=== PATIENT | female | born 1955 ===

== ENCOUNTER 2017-05-09 01:32 | Observation (INO) | payer MEDICAID ==
[2017-05-09] MEDS ORDERED: Iohexol 240 (50 ml) PO STA (02:17)
[2017-05-09] MEDS ORDERED: Iohexol 240 (50 ml) ONE (02:24)
--- NOTE | 2017-05-09 02:30 | C.PDOC ---
History Of Present Illness 62 year old female presents to the ED for evaluation of epigastric abdominal pain which has been intermittent since 1700 yesterday. She reports having a normal bowel movement yesterday at noon. She reports vomiting and denies fever, chills, chest pain, and shortness of breath. Patient reports she has had multiple abdominal surgeries as well as abdominal masses, and goes for colonoscopies every 3 months. Time Seen by Provider: 05/09/17 02:03 Chief Complaint (Nursing): Abdominal Pain History Per: Patient History/Exam Limitations: no limitations Onset/Duration Of Symptoms: Hrs, Intermittent Episodes Current Symptoms Are (Timing): Still Present Location Of Pain/Discomfort: Epigastric Radiation Of Pain To:: None Quality Of Discomfort: "Pain" Associated Symptoms: Vomiting (one time). denies: Fever, Chills, Diarrhea, Constipation Last Bowel Movement: Yesterday Recent travel outside of the [place]: No Additional History Per: Patient Abnormal Vaginal Bleeding: No Past Medical History Reviewed: Historical Data, Nursing Documentation, Vital Signs Vital Signs: Last Vital Signs Temp 98.5 F 05/09/17 03:48 Pulse 60 05/09/17 06:00 Resp 18 05/09/17 06:00 BP 102/64 05/09/17 06:00 Pulse Ox 100 05/09/17 06:18 - Medical History PMH: No Chronic Diseases Surgical History: Endoscopy Other Surgeries: abdominal surgeries, colon resection Family History: States: Unknown Family Hx - Social History Hx Alcohol Use: No Hx Substance Use: No - Immunization History Hx Tetanus Toxoid Vaccination: No Hx Influenza Vaccination: No Hx Pneumococcal Vaccination: No Review Of Systems Constitutional: Negative for: Fever, Chills Cardiovascular: Negative for: Chest Pain Respiratory: Negative for: Shortness of Breath Gastrointestinal: Positive for: Vomiting, Abdominal Pain. Negative for: Diarrhea, Constipation Physical Exam - Physical Exam Appears: Non-toxic, No Acute Distress Skin: Normal Color, Warm, Dry, Other (well-healed, vertical scar on abdomein ) Head: Atraumatic, Normacephalic Eye(s): bilateral: Normal Inspection Oral Mucosa: Moist Throat: No Erythema, No Exudate Neck: Normal ROM, Supple Chest: Symmetrical, No Deformity, No Tenderness Cardiovascular: Rhythm Regular, No Murmur Respiratory: Normal Breath Sounds, No Rales, No Rhonchi, No Wheezing Gastrointestinal/Abdominal: Soft, Tenderness (epigastric ), No Distention, No Guarding, No Rebound Rectal: Deferred Back: CVA Tenderness Extremity: Normal ROM, No Pedal Edema, No Calf Tenderness, Capillary Refill ( less than 2 seconds ) Pulses: Left Radial: Normal, Right Radial: Normal Neurological/Psych: Oriented x3, Normal Speech, Normal Cognition Gait: Steady ED Course And Treatment - Laboratory Results Result Diagrams: 05/09/17 02:33 05/09/17 02:33 ECG: Interpreted By Me, Viewed By Me ECG Rhythm: Sinus Rhythm Interpretation Of ECG: Normal Sinus Rhythm at rate 69bpm. Right bundle branch block. Left anterior fascicular block. Bifascicular block. Rate From EC O2 Sat by Pulse Oximetry: 100 (on RA) Pulse Ox Interpretation: Normal - CT Scan/US CT A/P Other Rad Studies (CT/US): Interpreted By Me, Read By Radiologist, Radiology Report Reviewed CT/US Interpretation: EXAM: CT Abdomen and Pelvis With Intravenous Contrast. EXAM DATE/TIME: 05/09/2017 2:18 AM. CLINICAL HISTORY: 62 years old, female; Pain; Abdominal pain; Prior surgery; Surgery type: Colon polyp removed;. Additional info: Abd pain. TECHNIQUE: Axial computed tomography images of the abdomen and pelvis with intravenous contrast. All CT. scans at this facility use one or more dose reduction techniques, viz.: automated exposure control;. ma/kV adjustment per patient size (including targeted exams where dose is matched to indication; i.e. head); or iterative reconstruction technique. Coronal and sagittal reformatted images were created and reviewed. CONTRAST: 100 mL of [id number] administered intravenously. COMPARISON: No relevant prior studies available. FINDINGS: LIMITATIONS: Mild streak/motion artifact. LOWER THORAX: No infiltrate seen in the lung bases. ABDOMEN: LIVER: Fatty infiltration of the liver. GALLBLADDER AND BILE DUCTS: See below. Gallbladder does not appear significantly dilated. No radioopaque gallstones are seen. PANCREAS: No CT evidence of acute pancreatitis. SPLEEN: No acute abnormality of the spleen identified. ADRENALS: No acute abnormality of the adrenal glands identified. KIDNEYS AND URETERS: No acute abnormality of the kidneys identified. No evidence of. significant hydrouereteronephrosis. STOMACH AND BOWEL: Evidence of prior subtotal colectomy. The rectum remains in situ, and. there is an enterocolic anastomosis in the pelvis. A few mildly dilated small bowel loops are seen in. the right abdomen. There is no transition point seen in the small bowel. There is no evidence of. diffuse small bowel dilatation. No decompressed small bowel loops are seen. There is normal. passage of enteric contrast through the entire small bowel, into the rectum. Findings are most likely. due to a mild ileus of the small bowel. No evidence of a high- grade small bowel obstruction or. significant small bowel wall thickening/ enteritis. Otherwise, no significant abnormality of the bowel is. identified. APPENDIX: Appendix has been surgically removed. PELVIS: BLADDER: No acute abnormality of the bladder identified. REPRODUCTIVE: Small, exophytic uterine fibroids are noted. At least 2 are seen. No evidence of. large adnexal masses. ABDOMEN and PELVIS: INTRAPERITONEAL SPACE: Moderate amount of free fluid in the abdomen. This abuts the liver,. gallbladder, and multiple right abdominal small bowel loops. Small amount of pelvic free fluid. No. evidence of free air. BONES/JOINTS: No acute fractures or other acute bony abnormality noted SOFT TISSUES: No acute abnormality of the visualized soft tissues is seen. VASCULATURE: No evidence of abdominal aortic aneurysm. No evidence of periaortic. hemorrhage. LYMPH NODES: No evidence of diffuse lymphadenopathy. IMPRESSION: - Moderate free fluid in the right abdomen, of uncertain etiology. - Dilatation of multiple small bowel loops in the right abdomen, most likely representing a mild. ileus. No evidence of a high grade small bowel obstruction or significant enteritis. - See above for remaining findings. Medical Decision Making Medical Decision Making: Progress: Bloodwork, urinalysis, CT A/P, and EKG ordered and reviewed. 535 am pt with moderate free fluid in abdomen, wioth ileus. also abnomral ekg. will admit to Dr Tejinder Fabian ekg with bifasicular blick- no old ekg to compre to. Disposition Discussed With : Marlen Fabian - Disposition Disposition Time: 05:54 Condition: STABLE - Clinical Impression Clinical Impression: Ileus, unspecified, Abdominal fluid collection, Bifascicular block - PA / TEMPLATE FITTER / Resident Statement MD/DO has reviewed & agrees with the documentation as recorded. - Scribe Statement The provider has reviewed the documentation as recorded by the Scribe (Jing Fabian) All medical record entries made by the Scribe were at my direction and personally dictated by me. I have reviewed the chart and agree that the record accurately reflects my personal performance of the history, physical exam, medical decision making, and the department course for this patient. I have also personally directed, reviewed, and agree with the discharge instructions and disposition.
[2017-05-09 02:39] LABS: BASO % 0.4 % (0.0-2.0); EOS % 0.2 % (0.0-4.0); LYMPH # 0.7 K/uL (1.0-4.3); LYMPH % 11.3 % (20.0-40.0); MEAN CELL VOLUME 81.7 fL (81.0-99.0); MEAN CORPUSCULAR HEMOGLOBIN 28.4 pg (27.0-31.0); MEAN CORPUSCULAR HGB CONC 34.8 g/dL (33.0-37.0); MEAN PLATELET VOLUME 8.9 fL (7.2-11.7); MONO # 0.2 K/uL (0.0-0.8); MONO % 2.7 % (0.0-10.0); NEUT # 5.6 K/uL (1.8-7.0); NEUT % 85.4 % (50.0-75.0); NRBC % 0.1 % (0.0-2.0); RBC 5.3 Mil/uL (3.80-5.20); RED CELL DISTRIBUTION WIDTH 12.8 % (11.5-14.5); WHITE BLOOD COUNT 6.6 K/uL (4.8-10.8)
[2017-05-09 02:46] LABS: SQUAMOUS EPITHIAL 2 /hpf (0-5); URINE BILIRUBIN NEGATIVE (NEGATIVE); URINE BLOOD 1+ (NEGATIVE); URINE CLARITY Clear (Clear); URINE COLOR Yellow (YELLOW); URINE GLUCOSE (UA) NORMAL (Normal); URINE LEUKOCYTE ESTERASE TRACE Leu/uL (Negative); URINE NITRATE NEGATIVE (NEGATIVE); URINE PROTEIN 1+ mg/dL (NEGATIVE); URINE UROBILINOGEN NORMAL mg/dL (0.2-1.0)
[2017-05-09 02:54] LABS: ALB/GLOB RATIO 1.4 (1.0-2.1); ALBUMIN 4.3 g/dL (3.5-5.0); ALT/SGPT 30 U/L (9-52); AST/SGOT 30 U/L (14-36); BLOOD UREA NITROGEN 18 mg/dL (7-17); CALCIUM 10.2 mg/dl (8.6-10.4); GFR AFRICAN-AMERICAN > 60; GFR NON-AFRICAN AMERICAN > 60; LIPASE 128 U/L (23-300)
[2017-05-09] MEDS ORDERED: Iohexol 350mg/ml 100 ML ONE (03:16)
--- NOTE | 2017-05-09 04:25 | CT ---
EXAM: CT Abdomen and Pelvis With Intravenous Contrast EXAM DATE/TIME: 05/09/2017 2:18 AM CLINICAL HISTORY: 62 years old, female; Pain; Abdominal pain; Prior surgery; Surgery type: Colon polyp removed; Additional info: Abd pain TECHNIQUE: Axial computed tomography images of the abdomen and pelvis with intravenous contrast. All CT scans at this facility use one or more dose reduction techniques, viz.: automated exposure control; ma/kV adjustment per patient size (including targeted exams where dose is matched to indication; i.e. head); or iterative reconstruction technique. Coronal and sagittal reformatted images were created and reviewed. CONTRAST: 100 mL of [id number] administered intravenously. COMPARISON: No relevant prior studies available. FINDINGS: LIMITATIONS: Mild streak/motion artifact. LOWER THORAX: No infiltrate seen in the lung bases. ABDOMEN: LIVER: Fatty infiltration of the liver. GALLBLADDER AND BILE DUCTS: See below. Gallbladder does not appear significantly dilated. No radioopaque gallstones are seen. PANCREAS: No CT evidence of acute pancreatitis. SPLEEN: No acute abnormality of the spleen identified. ADRENALS: No acute abnormality of the adrenal glands identified. KIDNEYS AND URETERS: No acute abnormality of the kidneys identified. No evidence of significant hydrouereteronephrosis. STOMACH AND BOWEL: Evidence of prior subtotal colectomy. The rectum remains in situ, and there is an enterocolic anastomosis in the pelvis. A few mildly dilated small bowel loops are seen in the right abdomen. There is no transition point seen in the small bowel. There is no evidence of diffuse small bowel dilatation. No decompressed small bowel loops are seen. There is normal passage of enteric contrast through the entire small bowel, into the rectum. Findings are most likely due to a mild ileus of the small bowel. No evidence of a high-grade small bowel obstruction or significant small bowel wall thickening/enteritis. Otherwise, no significant abnormality of the bowel is identified. APPENDIX: Appendix has been surgically removed. PELVIS: BLADDER: No acute abnormality of the bladder identified. REPRODUCTIVE: Small, exophytic uterine fibroids are noted. At least 2 are seen. No evidence of large adnexal masses. ABDOMEN and PELVIS: INTRAPERITONEAL SPACE: Moderate amount of free fluid in the abdomen. This abuts the liver, gallbladder, and multiple right abdominal small bowel loops. Small amount of pelvic free fluid. No evidence of free air. BONES/JOINTS: No acute fractures or other acute bony abnormality noted. SOFT TISSUES: No acute abnormality of the visualized soft tissues is seen. VASCULATURE: No evidence of abdominal aortic aneurysm. No evidence of periaortic hemorrhage. LYMPH NODES: No evidence of diffuse lymphadenopathy. IMPRESSION: - Moderate free fluid in the right abdomen, of uncertain etiology. - Dilatation of multiple small bowel loops in the right abdomen, most likely representing a mild ileus. No evidence of a high grade small bowel obstruction or significant enteritis. - See above for remaining findings.
[2017-05-09] MEDS ORDERED: Morphine 4 MG/ML VIAL ONE (06:08)
[2017-05-09] MEDS ORDERED: Dextrose 5%/0.9% NS 1,000 ML IV ONE (09:05)
[2017-05-09] MEDS: Dextrose 5%/0.9% NS 1,000 ML IV SCH ×2 (09:09→17:11)
--- NOTE | 2017-05-09 13:54 | CP.PCM.CON ---
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 She was last seen at [facility] with Dr. Scanlon and was deemed disease-free with CT A/P IV contrast 02/16/17 showing normal pancreas, lover, biliary system, normal bowel loops, uterine fibroids. Patient describes mild epigastric pain without radiation to back for three days with associated constipation, pain scale 3/10. Associated four episodes of small clear vomitus around 7-8pm last night. Currently, abdominal pain and vomiting have resolved. Denies fever, chills, sweats, diarrhea, melena, hematochezia, unintentional weight loss, sick contacts , recent antibiotics, recent travel, or unusual foods. Prior EGD/colonoscopy 2016 endorsed to showed Gastritis and many polyps requiring 3 month interval colonoscopy planned for 06/2017. 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) with urethral resection and reconstruction Review of Systems - Review of Systems Review of Systems: 12-point review of systems negative except for as above Past Patient History - Infectious Disease Hx of Infectious Diseases: None - Past Medical History & Family History Past Medical History?: Yes - Past Social History Smoking Status: Never Smoked - CARDIAC Hx Cardiac Disorders: No - PULMONARY Hx Respiratory Disorders: No - NEUROLOGICAL Hx Neurological Disorder: No - HEENT Hx HEENT Problems: No - RENAL Hx Chronic Kidney Disease: No - ENDOCRINE/METABOLIC Hx Endocrine Disorders: No - HEMATOLOGICAL/ONCOLOGICAL Hx Blood Disorders: No - INTEGUMENTARY Hx Dermatological Problems: No - MUSCULOSKELETAL/RHEUMATOLOGICAL Hx Musculoskeletal Disorders: Yes Hx Arthritis: Yes Hx Falls: Yes - GASTROINTESTINAL Hx Gastrointestinal Disorders: Yes Other/Comment: colon removed - GENITOURINARY/GYNECOLOGICAL Hx Genitourinary Disorders: No - PSYCHIATRIC Hx Psychophysiologic Disorder: No Hx Substance Use: No - SURGICAL HISTORY Hx Surgeries: Yes Other/Comment: colon removal sx - ANESTHESIA Hx Anesthesia: Yes Hx Anesthesia Reactions: No Hx Malignant Hyperthermia: No Has any member of the family had a problem w/ anesthesia?: No Meds Allergies/Adverse Reactions: Allergies Allergy/AdvReac Type Severity Reaction Status Date / Time acetaminophen [From Tylenol] Allergy Verified 05/09/17 01:48 - Medications Medications: Current Medications Dextrose/Sodium Chloride (Dextrose 5%/0.9% Ns 1000 Ml) 1,000 mls @ 100 mls/hr IV .Q10H [facility] Last Admin: 05/09/17 09:09 Dose: 100 mls/hr Piperacillin Sod/Tazobactam Sod (Zosyn 3.375 Gm Iv Premix) 3.375 gm in 50 mls @ 100 mls/hr IVPB Q8 [facility] Metronidazole (Flagyl) 500 mg in 100 mls @ 100 mls/hr IVPB Q12H [facility] Pantoprazole Sodium (Protonix Inj) 40 mg IVP DAILY [facility] Pneumococcal Polyvalent Vaccine (Pneumovax 23 Vaccine) 0.5 ml IM .ONCE ONE Stop: 05/10/17 10:01 Physical Exam - Constitutional Appears: Non-toxic, No Acute Distress - Head Exam Head Exam: ATRAUMATIC, NORMOCEPHALIC - Eye Exam Eye Exam: EOMI, PERRL. absent: Scleral icterus Pupil Exam: PERRL. absent: Miosis, Mydriatic - ENT Exam ENT Exam: Mucous Membranes Moist, Normal Oropharynx - Neck Exam Neck exam: Positive for: Full Rom, Normal Inspection - Respiratory Exam Respiratory Exam: Clear to Auscultation Bilateral. absent: Rales, Rhonchi, Wheezes - Cardiovascular Exam Cardiovascular Exam: RRR, +S1, +S2. absent: Gallop, Rubs - GI/Abdominal Exam GI & Abdominal Exam: Normal Bowel Sounds, Soft. absent: Distended, Firm, Guarding, Organomegaly, Rebound, Rigid, Tenderness - Extremities Exam Extremities exam: Positive for: normal inspection. Negative for: pedal edema - Neurological Exam Neurological exam: Alert - Psychiatric Exam Psychiatric exam: Normal Affect, Normal Mood - Skin Skin Exam: Dry, Intact, Normal Color, Warm Results - Vital Signs Recent Vital Signs: Last Vital Signs Temp 98.6 F 05/09/17 09:31 Pulse 55 L 05/09/17 09:31 Resp 19 05/09/17 09:31 BP 98/60 L 05/09/17 09:31 Pulse Ox 100 05/09/17 09:31 - Labs Result Diagrams: 05/09/17 02:33 05/09/17 02:33 Labs: Laboratory Results - last 24 hr 05/09/17 05/09/17 05/09/17 02:33 02:33 02:33 WBC 6.6 RBC 5.30 H Hgb 15.0 Hct 43.3 MCV 81.7 MCH 28.4 MCHC 34.8 RDW 12.8 Plt Count 222 MPV 8.9 Neut % (Auto) 85.4 H Lymph % (Auto) 11.3 L [place] % (Auto) 2.7 Eos % (Auto) 0.2 Baso % (Auto) 0.4 Neut # (Auto) 5.6 Lymph # (Auto) 0.7 L [place] # (Auto) 0.2 Eos # (Auto) 0.0 Baso # (Auto) 0.0 Sodium 133 Potassium 3.7 Chloride 99 Carbon Dioxide 26 Anion Gap 12 BUN 18 H Creatinine 0.7 Est GFR ( Amer) > 60 Est GFR (Non-Af Amer) > 60 Random Glucose 136 H Calcium 10.2 Total Bilirubin 0.9 AST 30 ALT 30 Alkaline Phosphatase 67 Troponin I < 0.0120 Total Protein 7.5 Albumin 4.3 Globulin 3.2 Albumin/Globulin Ratio 1.4 Lipase 128 Urine Color Yellow Urine Clarity Clear Urine pH 7.0 Ur Specific [place] 1.025 Urine Protein 1+ H Urine Glucose (UA) Normal Urine Ketones 1+ H Urine Blood 1+ H Urine Nitrate Negative Urine Bilirubin Negative Urine Urobilinogen Normal Ur Leukocyte Esterase Trace Urine WBC (Auto) 4 Urine RBC (Auto) 13 H Ur Squamous Epith Cells 2 Assessment & Plan - Assessment and Plan (Free Text) Assessment: 62 year old female with history of Familial adenomatous polyposis s/p subtotal colectomy with ileorectal anastomosis at [facility] in the past and 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 Active treatment of mild ileus and constipation with small free fluid on CT A/P. Prior EGD/colonoscopy 03/2017 endorsed to showed Gastritis and many polyps requiring 3 month interval colonoscopy planned for 06/2017. Plan: >advance to full liquid diet >start Miralax daily >surgery managing- appreciate recommendations >normal [facility] at [facility] 02/2017 >follows at [facility] with Dr. Scanlon- surgical oncology >planned repeat colonoscopy 06/2017 with established sustainability communicator for history of FAP aand recommend follow up of ileus on discharge <Giles May - Last Filed: 05/09/17 20:44> Meds - Medications Medications: Current Medications Dextrose/Sodium Chloride (Dextrose 5%/0.9% Ns 1000 Ml) 1,000 mls @ 100 mls/hr IV .Q10H [facility] Last Admin: 05/09/17 17:11 Dose: Not Given Piperacillin Sod/Tazobactam Sod (Zosyn 3.375 Gm Iv Premix) 3.375 gm in 50 mls @ 100 mls/hr IVPB Q8 [facility] Last Admin: 05/09/17 14:13 Dose: 100 mls/hr Metronidazole (Flagyl) 500 mg in 100 mls @ 100 mls/hr IVPB Q12H [facility] Last Admin: 05/09/17 14:13 Dose: 100 mls/hr Pantoprazole Sodium (Protonix Inj) 40 mg IVP DAILY [facility] Last Admin: 05/09/17 14:06 Dose: 40 mg Pneumococcal Polyvalent Vaccine (Pneumovax 23 Vaccine) 0.5 ml IM .ONCE ONE Stop: 05/10/17 10:01 Polyethylene Glycol (Miralax) 17 gm PO DAILY [facility] Last Admin: 05/09/17 16:08 Dose: 17 gm Results - Vital Signs Recent Vital Signs: Last Vital Signs Temp 97.6 F 05/09/17 16:24 Pulse 56 L 05/09/17 16:24 Resp 20 05/09/17 16:24 BP 95/60 L 05/09/17 16:24 Pulse Ox 98 05/09/17 16:24 - Labs Result Diagrams: 05/09/17 02:33 05/09/17 02:33 Labs: Laboratory Results - last 24 hr 05/09/17 05/09/17 05/09/17 02:33 02:33 02:33 WBC 6.6 RBC 5.30 H Hgb 15.0 Hct 43.3 MCV 81.7 MCH 28.4 MCHC 34.8 RDW 12.8 Plt Count 222 MPV 8.9 Neut % (Auto) 85.4 H Lymph % (Auto) 11.3 L [place] % (Auto) 2.7 Eos % (Auto) 0.2 Baso % (Auto) 0.4 Neut # (Auto) 5.6 Lymph # (Auto) 0.7 L [place] # (Auto) 0.2 Eos # (Auto) 0.0 Baso # (Auto) 0.0 Sodium 133 Potassium 3.7 Chloride 99 Carbon Dioxide 26 Anion Gap 12 BUN 18 H Creatinine 0.7 Est GFR ( Amer) > 60 Est GFR (Non-Af Amer) > 60 Random Glucose 136 H Calcium 10.2 Total Bilirubin 0.9 AST 30 ALT 30 Alkaline Phosphatase 67 Troponin I < 0.0120 Total Protein 7.5 Albumin 4.3 Globulin 3.2 Albumin/Globulin Ratio 1.4 Lipase 128 Urine Color Yellow Urine Clarity Clear Urine pH 7.0 Ur Specific [place] 1.025 Urine Protein 1+ H Urine Glucose (UA) Normal Urine Ketones 1+ H Urine Blood 1+ H Urine Nitrate Negative Urine Bilirubin Negative Urine Urobilinogen Normal Ur Leukocyte Esterase Trace Urine WBC (Auto) 4 Urine RBC (Auto) 13 H Ur Squamous Epith Cells 2 Attending/Attestation - Attestation I have personally seen and examined this patient.: Yes I have fully participated in the care of the patient.: Yes I have reviewed all pertinent clinical information: Yes Notes (Text): 05/09/17 20:41 62 year old female with h/o FAP s/p subtotal colectomy with HUAN, retroperitoneal desmoid tumor resection c/b urethreal resection/reconstruction admitted with abdominal pain, found to have ileus, small amount of ascites. 1. Ileus 2. Ascites 3. Abdominal pain Plan: -already abdominal pain is improved significantly -had bm -ok to advance diet as tolerated -supportive measures -small amount of ascites, probably insufficient for tap -supporitve measurs
[2017-05-09] MEDS: metroNIDAZOLE IV 500 mg/100 ml 500 MG/100 ML BAG IVPB SCH (14:13)
[2017-05-09] MEDS: Piperacill/Tazo 3.375gm in Dex 3.375 GM/50 ML BAG IVPB SCH ×2 (14:13→21:45)
--- NOTE | 2017-05-09 16:00 | CP.PCM.CON ---
History of Present Illness - History of Present Illness History of Present Illness: General Surgery Consult HPI: 62F presenting with abdominal pain. She had never had this pain before, and says it was very bad yesterday but has improved since then. She reports epigastric pain without radiation x 3 days. + NBNB emesis last night. At this time, abd pain and vomiting are resolved. Last BM was yesterday. Denies F/C, constipation, diarrhea, melena, hematochezia, unintentional weight loss, sick contacts, recent antibiotics. Last EGD/colonoscopy 03/2017 pt says showed gastritis and many rectal polyps. 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 FH: Mom @ 39yo and 2 sisters with colon cancer SH: Denies tobacco, EtOH, and drug use All: Tylenol Meds: Denies Review of Systems - Review of Systems All systems: reviewed and no additional remarkable complaints except (as per HPI ) Past Patient History - Infectious Disease Hx of Infectious Diseases: None - Past Medical History & Family History Past Medical History?: Yes - Past Social History Smoking Status: Never Smoked - CARDIAC Hx Cardiac Disorders: No - PULMONARY Hx Respiratory Disorders: No - NEUROLOGICAL Hx Neurological Disorder: No - HEENT Hx HEENT Problems: No - RENAL Hx Chronic Kidney Disease: No - ENDOCRINE/METABOLIC Hx Endocrine Disorders: No - HEMATOLOGICAL/ONCOLOGICAL Hx Blood Disorders: No - INTEGUMENTARY Hx Dermatological Problems: No - MUSCULOSKELETAL/RHEUMATOLOGICAL Hx Musculoskeletal Disorders: Yes Hx Arthritis: Yes Hx Falls: Yes - GASTROINTESTINAL Hx Gastrointestinal Disorders: Yes Other/Comment: colon removed - GENITOURINARY/GYNECOLOGICAL Hx Genitourinary Disorders: No - PSYCHIATRIC Hx Psychophysiologic Disorder: No Hx Substance Use: No - SURGICAL HISTORY Hx Surgeries: Yes Other/Comment: colon removal sx - ANESTHESIA Hx Anesthesia: Yes Hx Anesthesia Reactions: No Hx Malignant Hyperthermia: No Has any member of the family had a problem w/ anesthesia?: No Meds Allergies/Adverse Reactions: Allergies Allergy/AdvReac Type Severity Reaction Status Date / Time acetaminophen [From Tylenol] Allergy Verified 05/09/17 01:48 - Medications Medications: Current Medications Dextrose/Sodium Chloride (Dextrose 5%/0.9% Ns 1000 Ml) 1,000 mls @ 100 mls/hr IV .Q10H [facility] Last Admin: 05/09/17 09:09 Dose: 100 mls/hr Piperacillin Sod/Tazobactam Sod (Zosyn 3.375 Gm Iv Premix) 3.375 gm in 50 mls @ 100 mls/hr IVPB Q8 [facility] Last Admin: 05/09/17 14:13 Dose: 100 mls/hr Metronidazole (Flagyl) 500 mg in 100 mls @ 100 mls/hr IVPB Q12H [facility] Last Admin: 05/09/17 14:13 Dose: 100 mls/hr Pantoprazole Sodium (Protonix Inj) 40 mg IVP DAILY [facility] Last Admin: 05/09/17 14:06 Dose: 40 mg Pneumococcal Polyvalent Vaccine (Pneumovax 23 Vaccine) 0.5 ml IM .ONCE ONE Stop: 05/10/17 10:01 Polyethylene Glycol (Miralax) 17 gm PO DAILY [facility] Physical Exam - Constitutional Appears: Non-toxic, No Acute Distress - Head Exam Head Exam: ATRAUMATIC, NORMOCEPHALIC - Eye Exam Eye Exam: EOMI. absent: Scleral icterus - ENT Exam ENT Exam: Mucous Membranes Dry Additional comments: trachea midline - Respiratory Exam Respiratory Exam: NORMAL BREATHING PATTERN. absent: Respiratory Distress - Cardiovascular Exam Cardiovascular Exam: RRR. absent: Bradycardia, Tachycardia - GI/Abdominal Exam GI & Abdominal Exam: Soft. absent: Distended, Firm, Guarding, Rebound, Rigid, Tenderness - Rectal Exam Rectal Exam: Deferred - Extremities Exam Extremities exam: Positive for: normal capillary refill. Negative for: calf tenderness, pedal edema - Back Exam Back exam: absent: CVA tenderness (L), CVA tenderness (R) - Neurological Exam Neurological exam: Alert, Oriented x3 - Psychiatric Exam Psychiatric exam: Normal Affect, Normal Mood - Skin Skin Exam: Dry, Warm Results - Vital Signs Recent Vital Signs: Last Vital Signs Temp 98.6 F 05/09/17 09:31 Pulse 55 L 05/09/17 09:31 Resp 19 05/09/17 09:31 BP 98/60 L 05/09/17 09:31 Pulse Ox 100 05/09/17 09:31 - Labs Result Diagrams: 05/09/17 02:33 05/09/17 02:33 Labs: Laboratory Results - last 24 hr 05/09/17 05/09/17 05/09/17 02:33 02:33 02:33 WBC 6.6 RBC 5.30 H Hgb 15.0 Hct 43.3 MCV 81.7 MCH 28.4 MCHC 34.8 RDW 12.8 Plt Count 222 MPV 8.9 Neut % (Auto) 85.4 H Lymph % (Auto) 11.3 L [place] % (Auto) 2.7 Eos % (Auto) 0.2 Baso % (Auto) 0.4 Neut # (Auto) 5.6 Lymph # (Auto) 0.7 L [place] # (Auto) 0.2 Eos # (Auto) 0.0 Baso # (Auto) 0.0 Sodium 133 Potassium 3.7 Chloride 99 Carbon Dioxide 26 Anion Gap 12 BUN 18 H Creatinine 0.7 Est GFR ( Amer) > 60 Est GFR (Non-Af Amer) > 60 Random Glucose 136 H Calcium 10.2 Total Bilirubin 0.9 AST 30 ALT 30 Alkaline Phosphatase 67 Troponin I < 0.0120 Total Protein 7.5 Albumin 4.3 Globulin 3.2 Albumin/Globulin Ratio 1.4 Lipase 128 Urine Color Yellow Urine Clarity Clear Urine pH 7.0 Ur Specific [place] 1.025 Urine Protein 1+ H Urine Glucose (UA) Normal Urine Ketones 1+ H Urine Blood 1+ H Urine Nitrate Negative Urine Bilirubin Negative Urine Urobilinogen Normal Ur Leukocyte Esterase Trace Urine WBC (Auto) 4 Urine RBC (Auto) 13 H Ur Squamous Epith Cells 2 - Imaging and Cardiology CT scan - abdomen Status: Image reviewed by me, Report reviewed by me Assessment & Plan - Assessment and Plan (Free Text) Assessment: 62F with resolving SBO Plan: SDCs NPO tonight Abd xray in AM If no signs of obstruction can advance to liquid diet D/W Dr. Winston Reyes PGY4
[2017-05-09] MEDS: POLYETHYLENE GLYCOL 3350 17 GM/Dose PACKET PO SCH (16:08)
--- NOTE | 2017-05-09 18:38 | CP.PCM.HP ---
Past Patient History - Infectious Disease Hx of Infectious Diseases: None - Past Medical History & Family History Past Medical History?: Yes - Past Social History Smoking Status: Never Smoked - CARDIAC Hx Cardiac Disorders: No - PULMONARY Hx Respiratory Disorders: No - NEUROLOGICAL Hx Neurological Disorder: No - HEENT Hx HEENT Problems: No - RENAL Hx Chronic Kidney Disease: No - ENDOCRINE/METABOLIC Hx Endocrine Disorders: No - HEMATOLOGICAL/ONCOLOGICAL Hx Blood Disorders: No - INTEGUMENTARY Hx Dermatological Problems: No - MUSCULOSKELETAL/RHEUMATOLOGICAL Hx Musculoskeletal Disorders: Yes Hx Arthritis: Yes Hx Falls: Yes - GASTROINTESTINAL Hx Gastrointestinal Disorders: Yes Other/Comment: colon removed - GENITOURINARY/GYNECOLOGICAL Hx Genitourinary Disorders: No - PSYCHIATRIC Hx Psychophysiologic Disorder: No Hx Substance Use: No - SURGICAL HISTORY Hx Surgeries: Yes Other/Comment: colon removal sx - ANESTHESIA Hx Anesthesia: Yes Hx Anesthesia Reactions: No Hx Malignant Hyperthermia: No Has any member of the family had a problem w/ anesthesia?: No Meds Allergies/Adverse Reactions: Allergies Allergy/AdvReac Type Severity Reaction Status Date / Time acetaminophen [From Tylenol] Allergy Verified 05/09/17 01:48 Physical Exam - Constitutional Appears: Well - Head Exam Head Exam: ATRAUMATIC, NORMAL INSPECTION, NORMOCEPHALIC - Eye Exam Eye Exam: EOMI, Normal appearance, PERRL Pupil Exam: NORMAL ACCOMODATION, PERRL - ENT Exam ENT Exam: Mucous Membranes Moist, Normal Exam - Neck Exam Neck exam: Positive for: Normal Inspection - Respiratory Exam Respiratory Exam: Decreased Breath Sounds - Cardiovascular Exam Cardiovascular Exam: REGULAR RHYTHM, +S1, +S2 - GI/Abdominal Exam GI & Abdominal Exam: Diminished Bowel Sounds, Soft - Rectal Exam Rectal Exam: Deferred Results - Vital Signs Recent Vital Signs: Last Vital Signs Temp 97.6 F 05/09/17 16:24 Pulse 56 L 05/09/17 16:24 Resp 20 05/09/17 16:24 BP 95/60 L 05/09/17 16:24 Pulse Ox 98 05/09/17 16:24 - Labs Result Diagrams: 05/09/17 02:33 05/09/17 02:33 Labs: Laboratory Results - last 24 hr 05/09/17 05/09/17 05/09/17 02:33 02:33 02:33 WBC 6.6 RBC 5.30 H Hgb 15.0 Hct 43.3 MCV 81.7 MCH 28.4 MCHC 34.8 RDW 12.8 Plt Count 222 MPV 8.9 Neut % (Auto) 85.4 H Lymph % (Auto) 11.3 L [place] % (Auto) 2.7 Eos % (Auto) 0.2 Baso % (Auto) 0.4 Neut # (Auto) 5.6 Lymph # (Auto) 0.7 L [place] # (Auto) 0.2 Eos # (Auto) 0.0 Baso # (Auto) 0.0 Sodium 133 Potassium 3.7 Chloride 99 Carbon Dioxide 26 Anion Gap 12 BUN 18 H Creatinine 0.7 Est GFR ( Amer) > 60 Est GFR (Non-Af Amer) > 60 Random Glucose 136 H Calcium 10.2 Total Bilirubin 0.9 AST 30 ALT 30 Alkaline Phosphatase 67 Troponin I < 0.0120 Total Protein 7.5 Albumin 4.3 Globulin 3.2 Albumin/Globulin Ratio 1.4 Lipase 128 Urine Color Yellow Urine Clarity Clear Urine pH 7.0 Ur Specific [place] 1.025 Urine Protein 1+ H Urine Glucose (UA) Normal Urine Ketones 1+ H Urine Blood 1+ H Urine Nitrate Negative Urine Bilirubin Negative Urine Urobilinogen Normal Ur Leukocyte Esterase Trace Urine WBC (Auto) 4 Urine RBC (Auto) 13 H Ur Squamous Epith Cells 2
[2017-05-09 23:31] VITALS: PULSE 57; O2SAT 100
[2017-05-10] MEDS: metroNIDAZOLE IV 500 mg/100 ml 500 MG/100 ML BAG IVPB SCH (02:03)
[2017-05-10] MEDS: Dextrose 5%/0.9% NS 1,000 ML IV SCH ×2 (03:39→05:17)
[2017-05-10] MEDS: Piperacill/Tazo 3.375gm in Dex 3.375 GM/50 ML BAG IVPB SCH (05:10)
[2017-05-10 07:31] LABS: HEMOGLOBIN 14.2 g/dL (11.0-16.0); MEAN CELL VOLUME 83.5 fL (81.0-99.0); MEAN CORPUSCULAR HEMOGLOBIN 28.1 pg (27.0-31.0); MEAN CORPUSCULAR HGB CONC 33.6 g/dL (33.0-37.0); MEAN PLATELET VOLUME 9.4 fL (7.2-11.7); RBC 5.04 Mil/uL (3.80-5.20); RED CELL DISTRIBUTION WIDTH 13.2 % (11.5-14.5); WHITE BLOOD COUNT 3.5 K/uL (4.8-10.8)
[2017-05-10 07:54] LABS: ALB/GLOB RATIO 1.2 (1.0-2.1); ALBUMIN 3.5 g/dL (3.5-5.0); ALT/SGPT 27 U/L (9-52); AST/SGOT 25 U/L (14-36); BLOOD UREA NITROGEN 15 mg/dL (7-17); CALCIUM 8.9 mg/dl (8.6-10.4); GFR AFRICAN-AMERICAN > 60; GFR NON-AFRICAN AMERICAN > 60
--- NOTE | 2017-05-10 08:01 | CP.PCM.PN ---
Subjective - Date & Time of Evaluation Date of Evaluation: 05/10/17 Time of Evaluation: 06:50 - Subjective Subjective: General Surgery Pt S&E, NAEO. +BM/flatus. Denies pain. Ambulating. Objective - Vital Signs/Intake and Output Vital Signs (last 24 hours): Temp Pulse Resp BP Pulse Ox 97.5 F L 57 L 20 100/64 100 05/09/17 23:00 05/09/17 23:00 05/09/17 23:00 05/09/17 23:00 05/09/17 23:00 Intake and Output: 05/10/17 05/10/17 06:59 18:59 Intake Total 800 Balance 800 - Medications Medications: Current Medications Dextrose/Sodium Chloride (Dextrose 5%/0.9% Ns 1000 Ml) 1,000 mls @ 100 mls/hr IV .Q10H [facility] Last Admin: 05/10/17 05:17 Dose: 100 mls/hr Piperacillin Sod/Tazobactam Sod (Zosyn 3.375 Gm Iv Premix) 3.375 gm in 50 mls @ 100 mls/hr IVPB Q8 [facility] Last Admin: 05/10/17 05:10 Dose: 100 mls/hr Metronidazole (Flagyl) 500 mg in 100 mls @ 100 mls/hr IVPB Q12H [facility] Last Admin: 05/10/17 02:03 Dose: 100 mls/hr Pantoprazole Sodium (Protonix Inj) 40 mg IVP DAILY [facility] Last Admin: 05/09/17 14:06 Dose: 40 mg Pneumococcal Polyvalent Vaccine (Pneumovax 23 Vaccine) 0.5 ml IM .ONCE ONE Stop: 05/10/17 10:01 Polyethylene Glycol (Miralax) 17 gm PO DAILY [facility] Last Admin: 05/09/17 16:08 Dose: 17 gm - Labs Labs: 05/10/17 07:00 05/10/17 07:00 - Constitutional Appears: Non-toxic, No Acute Distress - Head Exam Head Exam: ATRAUMATIC, NORMOCEPHALIC - Eye Exam Eye Exam: EOMI. absent: Scleral icterus - Respiratory Exam Respiratory Exam: NORMAL BREATHING PATTERN. absent: Respiratory Distress - GI/Abdominal Exam GI & Abdominal Exam: Soft. absent: Distended, Firm, Guarding, Rigid, Tenderness , Mass, Rebound Additional comments: old scars - Neurological Exam Neurological Exam: Alert, Awake - Skin Skin Exam: Dry, Warm Assessment and Plan - Assessment and Plan (Free Text) Assessment: 62F with resolving SBO Plan: Abd Xray this AM If ok, advance to CLD D/W Dr. Winston Reyes PGY4
[2017-05-10 08:05] VITALS: BP 104/68; RESP 18; TEMP 97.6
[2017-05-10] MEDS ORDERED: Pneumococcal 23-Valent Vaccine IM ONE (10:00)
[2017-05-10] MEDS: POLYETHYLENE GLYCOL 3350 17 GM/Dose PACKET PO SCH (10:13)
--- NOTE | 2017-05-10 10:41 | CP.PCM.PN ---
<Lisa Corey - Last Filed: 05/10/17 11:23> Subjective - Date & Time of Evaluation Date of Evaluation: 05/10/17 Time of Evaluation: 06:45 - Subjective Subjective: GI fellow PGy4 Progress Note Pt seen and evaluated at bedside, doing wel with no further abdominal pain. Pt with 2 Bm moderate amount last night. No nausea or vomiting. ROS: A 12pt ROS was negative except as above. Objective - Vital Signs/Intake and Output Vital Signs (last 24 hours): Temp Pulse Resp BP Pulse Ox 97.6 F 57 L 18 104/68 100 05/10/17 07:10 05/10/17 07:10 05/10/17 07:10 05/10/17 07:10 05/10/17 07:10 Intake and Output: 05/10/17 05/10/17 06:59 18:59 Intake Total 800 Balance 800 - Medications Medications: Current Medications Dextrose/Sodium Chloride (Dextrose 5%/0.9% Ns 1000 Ml) 1,000 mls @ 100 mls/hr IV .Q10H [facility] Last Admin: 05/10/17 05:17 Dose: 100 mls/hr Piperacillin Sod/Tazobactam Sod (Zosyn 3.375 Gm Iv Premix) 3.375 gm in 50 mls @ 100 mls/hr IVPB Q8 [facility] Last Admin: 05/10/17 05:10 Dose: 100 mls/hr Metronidazole (Flagyl) 500 mg in 100 mls @ 100 mls/hr IVPB Q12H [facility] Last Admin: 05/10/17 02:03 Dose: 100 mls/hr Pantoprazole Sodium (Protonix Inj) 40 mg IVP DAILY [facility] Last Admin: 05/10/17 09:21 Dose: 40 mg Polyethylene Glycol (Miralax) 17 gm PO DAILY [facility] Last Admin: 05/10/17 10:13 Dose: 17 gm - Labs Labs: 05/10/17 07:00 05/10/17 07:00 - Constitutional Appears: Non-toxic, No Acute Distress - Head Exam Head Exam: ATRAUMATIC, NORMAL INSPECTION, NORMOCEPHALIC - Eye Exam Eye Exam: EOMI, Normal appearance, PERRL Pupil Exam: PERRL - ENT Exam ENT Exam: Mucous Membranes Moist, Normal Exam - Neck Exam Neck Exam: Full ROM - Respiratory Exam Respiratory Exam: Clear to Ausculation Bilateral, NORMAL BREATHING PATTERN - Cardiovascular Exam Cardiovascular Exam: REGULAR RHYTHM - GI/Abdominal Exam GI & Abdominal Exam: Normal Bowel Sounds - Rectal Exam Rectal Exam: Deferred - Extremities Exam Extremities Exam: Full ROM, Normal Inspection - Back Exam Back Exam: NORMAL INSPECTION - Neurological Exam Neurological Exam: Alert, Awake, Oriented x3 - Psychiatric Exam Psychiatric exam: Normal Affect, Normal Mood - Skin Skin Exam: Dry, Intact, Normal Color, Warm Assessment and Plan - Assessment and Plan (Free Text) Assessment: This is a 62 year old female with history of Familial adenomatous polyposis s/p subtotal colectomy with ileorectal anastomosis at [facility] in the past and 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 1. Ileus 2. Ascites 3. Abdominal pain Plan: -Continue supportive care with pain control and anti-emetics -Abdominal pain has resolved -Pt having BM, continue bowel regimen with miralax daily -Advance diet to regular low fat diet -Small amount of ascites no paracentesis -Follows at [facility] with Dr. Scanlon- surgical oncology, planned repeat colonoscopy 06/2017 with established rf microwave engineer for history of FAP and recommend follow up of ileus on discharge <Taz Betancourt - Last Filed: 05/10/17 14:06> Objective - Vital Signs/Intake and Output Vital Signs (last 24 hours): Temp Pulse Resp BP Pulse Ox 97.6 F 57 L 18 104/68 100 05/10/17 07:10 05/10/17 07:10 05/10/17 07:10 05/10/17 07:10 05/10/17 07:10 Intake and Output: 05/10/17 05/10/17 06:59 18:59 Intake Total 800 Balance 800 - Medications Medications: Current Medications Dextrose/Sodium Chloride (Dextrose 5%/0.9% Ns 1000 Ml) 1,000 mls @ 100 mls/hr IV .Q10H [facility] Last Admin: 05/10/17 05:17 Dose: 100 mls/hr Piperacillin Sod/Tazobactam Sod (Zosyn 3.375 Gm Iv Premix) 3.375 gm in 50 mls @ 100 mls/hr IVPB Q8 [facility] Last Admin: 05/10/17 05:10 Dose: 100 mls/hr Metronidazole (Flagyl) 500 mg in 100 mls @ 100 mls/hr IVPB Q12H [facility] Last Admin: 05/10/17 02:03 Dose: 100 mls/hr Pantoprazole Sodium (Protonix Inj) 40 mg IVP DAILY [facility] Last Admin: 05/10/17 09:21 Dose: 40 mg Polyethylene Glycol (Miralax) 17 gm PO DAILY [facility] Last Admin: 05/10/17 10:13 Dose: 17 gm - Labs Labs: 05/10/17 07:00 05/10/17 07:00 Attending/Attestation - Attestation I have personally seen and examined this patient.: Yes I have fully participated in the care of the patient.: Yes I have reviewed all pertinent clinical information, including history, physical exam and plan: Yes Notes (Text): 05/10/17 14:02 I have seen and examined patient with GI fellow and vp medical. No acute events overnight, she is seen resting in bed comfortably. She had two soft bowel movements overnight. She denies abdominal pain, nausea, vomiting, diarrhea, fever/chills. She is asking for her diet to be advanced and to leave hospital. Review of vitals from today are normal. FAP s/p subtotal colectomy History of retroperitoneal desmoid tumor Abdominal pain, ileus - resolved - Advance diet as tolerated - Maintain bowel regimen to prevent recurrent constipation - From GI standpoint, ok to discharge patient home with subsequent outpatient follow up. She has appointment scheduled at [place] with her primary GI physician for colonoscopy next month. She would also benefit from small bowel evaluation with capsule endoscopy given history of FAP with increased risk of developing upper GI adenomatous lesions. No further planned GI interventions, will sign off case. Please reconsult as necessary, thank you.
--- NOTE | 2017-05-10 15:08 | CP.PCM.PN ---
Subjective - Date & Time of Evaluation Date of Evaluation: 05/10/17 Time of Evaluation: 15:07 - Subjective Subjective: PATIENT WAS ADMITTED FOR POSS SBO; ABLE TO HAD A BM DENIES ABDOMINAL PAIN; CHEST PAIN OR SOB NO SIGN OF DISTRESS NOTED Objective - Vital Signs/Intake and Output Vital Signs (last 24 hours): Temp Pulse Resp BP Pulse Ox 97.6 F 57 L 18 104/68 100 05/10/17 07:10 05/10/17 07:10 05/10/17 07:10 05/10/17 07:10 05/10/17 07:10 Intake and Output: 05/10/17 05/10/17 06:59 18:59 Intake Total 800 Balance 800 - Medications Medications: Current Medications Dextrose/Sodium Chloride (Dextrose 5%/0.9% Ns 1000 Ml) 1,000 mls @ 100 mls/hr IV .Q10H [facility] Last Admin: 05/10/17 05:17 Dose: 100 mls/hr Piperacillin Sod/Tazobactam Sod (Zosyn 3.375 Gm Iv Premix) 3.375 gm in 50 mls @ 100 mls/hr IVPB Q8 [facility] Last Admin: 05/10/17 05:10 Dose: 100 mls/hr Metronidazole (Flagyl) 500 mg in 100 mls @ 100 mls/hr IVPB Q12H [facility] Last Admin: 05/10/17 02:03 Dose: 100 mls/hr Pantoprazole Sodium (Protonix Inj) 40 mg IVP DAILY [facility] Last Admin: 05/10/17 09:21 Dose: 40 mg Polyethylene Glycol (Miralax) 17 gm PO DAILY [facility] Last Admin: 05/10/17 10:13 Dose: 17 gm - Labs Labs: 05/10/17 07:00 05/10/17 07:00 Assessment and Plan - Assessment and Plan (Free Text) Assessment: PATIENT SEEN AND EXAMINED \ DIET WAS ADVANCE TO REGULAR AND PATIENT TOLERATED DISCUSS WITH DR RAMIREZ AND PMD WHO CLEAR PATIENT FOR DC FOLLOW UP WITH DR Tejinder COHEN IN 1-2 WEEKS AT HIS OFFICE ---CALL FOR APPOINTMENT FOLLOW UP WITH YOUR WAREHOUSING TECHNICIAN AT [facility] FOR FAP AND ILEUS ON DISCHARGE ---CALL FOR APPOINTMENT CONTINUE ALL YOUR MEDICATION IF ANY NEW PRESCRIPTION GIVEN MIRALAX BY MOUTH FOR 7 DAYS ACTIVITY TOLERATED CALL DR COHEN OR GO TO THE EMERGENCY ROOM IF SYMPTOMS RETURN OR WORSENING DISCUSS WITH PATIENT WHO AGREE AND VERBALIZED UNDERSTANDING
--- NOTE | 2017-05-10 22:12 | CARD ---
APPROVED REPORT EKG Measurement Heart [id number] <Conclusion> Normal sinus rhythm Right bundle branch block Left anterior fascicular block Bifascicular block Abnormal ECG
== END 2017-05-10 15:35 | disposition home or self-care (01) ==
LOC: C.ER 01:32 → SUPCPDRO 01:32 → C.9E 05:56 → C.5S 09:22
PROVIDERS: ADMIT Internal Medicine Nephrology; ATTEND Internal Medicine Nephrology
DX: K56.7 Ileus, unspecified (principal); R18.8 Other ascites; K29.70 Gastritis, unspecified, without bleeding; I45.2 Bifascicular block; Z80.0 Family history of malignant neoplasm of digestive organs; Z90.49 Acquired absence of other specified parts of digestive tract